=== PATIENT | female | born 1995 | race African-American/Black ===

== ENCOUNTER 2017-04-10 12:05 | Emergency (ER) | payer SELFPAY ==
[~2017-04-10 12:05] MED LIST: IBUP400 PO; MOTI25CH PO
[2017-04-10 12:15] VITALS: BP 113/59; PULSE 118; RESP 20; TEMP 97.5; O2SAT 98
[2017-04-10] MEDS ORDERED: SODIUM CHLOR 0.9% 1000 ML INJ 1,000 ML IV SCH (12:34)
--- NOTE | 2017-04-10 12:37 | PD ---
HPI Chief Complaint: Abdominal Pain Time Seen by Provider: 12:34 Travel History International Travel<30 days: No Contact w/Intl Traveler<30days: No Traveled to known affect area: No History of Present Illness HPI patient 21-year-old female presents emergency department for evaluation of nausea vomiting suprapubic cramps. Patient states that she is on her period and thinks that she's having some cramping. Denies any discharge denies any hematemesis denies any diarrhea or constipation. Denies possibility for . Patient does state that she had some alcoholic beverages last night. States symptoms been going on for the past 2 days. PFS Past Medical History Medical History: Denies Significant Hx Developmental Delay: No Diminished Hearing: No Immunizations Current: Yes ?: Not LMP: 04/2017 Past Surgical History Surgical History: No Previous Surgery Social History Alcohol Use: Yes (drank last night) Tobacco Use: No Substance Use: No Allergies-Medications (Allergen,Severity, Reaction): Coded Allergies: No Known Allergies (Unverified , 04/10/17) Reported Meds & Prescriptions Reported Meds & Active Scripts Active Zofran Odt (Ondansetron Odt) 4 Mg Tab 4 Mg SL Q6HR PRN Review of Systems Except as stated in HPI: all other systems reviewed are Neg Physical Exam Narrative GENERAL: Well-developed well-nourished no obvious distress SKIN: Focused skin assessment warm/dry. HEAD: Atraumatic. Normocephalic. EYES: Pupils equal and round. No scleral icterus. No injection or drainage. ENT: No nasal bleeding or discharge. Mucous membranes pink and moist. NECK: Trachea midline. No JVD. CARDIOVASCULAR: Regular rate and rhythm. No murmur appreciated. RESPIRATORY: No accessory muscle use. Clear to auscultation. Breath sounds equal bilaterally. GASTROINTESTINAL: Abdomen soft, non-tender, nondistended. Hepatic and splenic margins not palpable. MUSCULOSKELETAL: No obvious deformities. No clubbing. No cyanosis. No edema. NEUROLOGICAL: Awake and alert. No obvious cranial nerve deficits. Motor grossly within normal limits. Normal speech. PSYCHIATRIC: Appropriate mood and affect; insight and judgment normal. Data Data Last Documented VS Vital Signs Date Time Temp Pulse Resp B/P (MAP) Pulse Ox O2 Delivery O2 Flow Rate FiO2 04/10/17 15:00 64 16 125/69 (87) 98 04/10/17 12:15 97.5 Orders Orders Urinalysis - C+S If Indicated (04/10/17 12:23) Ed Urine Pregnancytest Poc (04/10/17 12:23) Complete Blood Count With Diff (04/10/17 12:34) Comprehensive Metabolic Panel (04/10/17 12:34) Lipase (04/10/17 12:34) Iv Access Insert/Monitor (04/10/17 12:34) Ecg Monitoring (04/10/17 12:34) Oximetry (04/10/17 12:34) Ondansetron Inj (Zofran Inj) (04/10/17 12:45) Sodium Chlor 0.9% 1000 Ml Inj (Ns 1000 M (04/10/17 12:34) Sodium Chloride 0.9% Flush (Ns Flush) (04/10/17 12:45) Ketorolac Inj (Toradol Inj) (04/10/17 14:30) Labs Laboratory Tests Test 04/10/17 12:40 04/10/17 13:35 White Blood Count 7.4 TH/MM3 Red Blood Count 5.12 MIL/MM3 Hemoglobin 11.4 GM/DL Hematocrit 35.5 % Mean Corpuscular Volume 69.4 FL Mean Corpuscular Hemoglobin 22.2 PG Mean Corpuscular Hemoglobin Concent 32.0 % Red Cell Distribution Width 15.1 % Platelet Count 273 TH/MM3 Mean Platelet Volume 8.8 FL Neutrophils (%) (Auto) 82.2 % Lymphocytes (%) (Auto) 14.5 % Monocytes (%) (Auto) 2.0 % Eosinophils (%) (Auto) 0.4 % Basophils (%) (Auto) 0.9 % Neutrophils # (Auto) 6.0 TH/MM3 Lymphocytes # (Auto) 1.1 TH/MM3 Monocytes # (Auto) 0.1 TH/MM3 Eosinophils # (Auto) 0.0 TH/MM3 Basophils # (Auto) 0.1 TH/MM3 CBC Comment AUTO DIFF Differential Comment AUTO DIFF CONFIRMED Ovalocytes 1+ Keratocytes OCC Blood Urea Nitrogen 12 MG/DL Creatinine 0.92 MG/DL Random Glucose 118 MG/DL Total Protein 7.9 GM/DL Albumin 4.0 GM/DL Calcium Level 8.9 MG/DL Alkaline Phosphatase 58 U/L Aspartate Amino Transf (AST/SGOT) 17 U/L Alanine Aminotransferase (ALT/SGPT) 17 U/L Total Bilirubin 0.4 MG/DL Sodium Level 140 MEQ/L Potassium Level 3.6 MEQ/L Chloride Level 107 MEQ/L Carbon Dioxide Level 21.4 MEQ/L Anion Gap 12 MEQ/L Estimat Glomerular Filtration Rate 94 ML/MIN Lipase 87 U/L Urine Collection Type CLEAN CATCH Urine Color YELLOW Urine Turbidity CLEAR Urine pH 8.0 Urine Specific [place] 1.019 Urine Protein NEG mg/dL Urine Glucose (UA) NEG mg/dL Urine Ketones 15 mg/dL Urine Occult Blood LARGE Urine Nitrite NEG Urine Bilirubin NEG Urine Leukocyte Esterase NEG Urine RBC 15-19 /hpf Urine Squamous Epithelial Cells 0-5 /hpf Microscopic Urinalysis Comment CULT NOT INDICATED Urine Collection Time 13:35 MDM Medical Decision Making Medical Screen Exam Complete: Yes Emergency Medical Condition: Yes Differential Diagnosis , dehydration, nausea vomiting, gastritis, gastroenteritis Narrative Course Patient roomed emergency department, given her suprapubic pain she was offered pelvic examination and declined. Her basic labs are reassuring. She was given Zofran she states her stomach was no longer upset that she still having some mild low back pain. She is given Toradol and felt she was comfortable enough to be discharged. She was prescribed Zofran and discussed symptomatic management home bland diet and return to ED criteria. Discussed dangers of drinking. Diagnosis Primary Impression: Nausea & vomiting Qualified Codes: R11.2 - Nausea with vomiting, unspecified Med/Other Pt SpecificInfo: Prescription(s) given Scripts Ondansetron Odt (Zofran Odt) 4 Mg Tab 4 MG SL Q6HR Y for Nausea/Vomiting, #20 TAB 0 Refills Prov: Santana Colindres MD 04/10/17 Disposition: 01 DISCHARGE HOME Condition: Stable Santana Colindres MD Apr 10, 2017 12:37
[2017-04-10 12:45] LABS: BASOPHIL # 0.1 TH/MM3 (0-0.2); BASOPHIL % 0.9 % (0.0-2.0); EOSINOPHIL % 0.4 % (0.0-4.0); HEMATOCRIT 35.5 % (35.0-46.0); LYMPH % 14.5 % (9.0-44.0); LYMPHOCYTE # 1.1 TH/MM3 (1.0-4.8); MEAN CELL VOLUME 69.4 FL (80.0-100.0); MEAN CORPUSCULAR HEMOGLOBIN 22.2 PG (27.0-34.0); NEUT % 82.2 % (16.0-70.0); PLATELET COUNT 273 TH/MM3 (150-450); RED BLOOD COUNT 5.12 MIL/MM3 (4.00-5.30); RED CELL DISTRIBUTION WIDTH 15.1 % (11.6-17.2); WHITE BLOOD COUNT 7.4 TH/MM3 (4.0-11.0)
[2017-04-10] MEDS ORDERED: ONDANSETRON HCL 4 MG/2 ML VIAL IVP ONE (12:45)
[2017-04-10] MEDS ORDERED: SODIUM CHLORIDE 0.9% FLUSH 10 ML FLUSH IV FLUSH PRN (12:45)
[2017-04-10 12:56] LABS: CHLORIDE 107 MEQ/L (98-107); POTASSIUM 3.6 MEQ/L (3.5-5.1); SODIUM (NA) 140 MEQ/L (136-145)
[2017-04-10 12:57] LABS: HEMO FLAGS AUTO DIFF
[2017-04-10 13:00] LABS: ANION GAP 12 MEQ/L (5-15); BICARBONATE 21.4 MEQ/L (21.0-32.0); BLOOD UREA NITROGEN 12 MG/DL (7-18)
[2017-04-10 13:03] LABS: ALT (GPT) 17 U/L (9-42); AST (GOT) 17 U/L (16-38); GLOMERULAR FILTRATION RATE 94 ML/MIN (>89)
[2017-04-10 13:05] LABS: TOTAL BILIRUBIN ADULT 0.4 MG/DL (0.2-1.0)
[2017-04-10 13:06] LABS: ALKALINE PHOSPHATASE 58 U/L (45-117)
[2017-04-10 13:41] LABS: KERATOCYTES OCC (NORMAL); OVALOCYTES 1+ (NORMAL); SCAN/DIFF AUTO DIFF CONFIRMED
[2017-04-10 14:03] LABS: BLOOD, URINE LARGE (NEG); GLUCOSE,URINE NEG (NEG); KETONE, URINE 15 mg/dL (NEG); NITRITE,URINE NEG (NEG)
[2017-04-10 14:15] LABS: METHOD OF COLLECTION CLEAN CATCH; URINE COLOR YELLOW (YELLW/STRAW)
[2017-04-10] MEDS ORDERED: KETOROLAC TROMETHAMINE 30 MG/ML (IVP) VIAL IV PUSH ONE (14:30)
[2017-04-10 14:33] LABS: COMMENT (UR) CULT NOT INDICATED; CULTURE IF INDICATED CULT NOT INDICATED; RBC, URINE 15-19 /hpf (0-3); SQUAMOUS EPITHELIAL CELL URINE 0-5 /hpf (0-5)
[2017-04-10] MEDS ORDERED: ZOFR4TAB3 SL (14:44)
[2017-04-10 15:00] VITALS: BP 125/69
== END 2017-04-10 15:29 | disposition home or self-care (01) ==
LOC: PHED 12:05
DX: R11.2 Nausea with vomiting, unspecified (principal)
CPT/HCPCS: 80053; 81001; 83690; 84703; 85025; 96361; 96374; 96375; 99284; J1885; J2405; J7030

== ENCOUNTER 2017-12-23 18:09 | Emergency (ER) | payer MEDICAID, OTHER ==
[~2017-12-23] VITALS: Ht 165.1 cm; Wt 75.7 kg
[~2017-12-23 18:09] MED LIST changes: -IBUP400 PO; -MOTI25CH PO; +ZOFR4TAB3 SL
[2017-12-23 18:26] VITALS: BP 121/67; PULSE 78; RESP 16; TEMP 98.2; O2SAT 98
[2017-12-23] MEDS ORDERED: SODIUM CHLOR 0.9% 1000 ML INJ 1,000 ML IV ONE (18:32)
--- NOTE | 2017-12-23 18:36 | PD ---
HPI Chief Complaint: Cold / Flu Symptoms Time Seen by Provider: 18:27 Travel History International Travel<30 days: No Contact w/Intl Traveler<30days: No Traveled to known affect area: No History of Present Illness HPI 22-year-old female presents to the emergency department for evaluation of cold symptoms for 1 week reporting runny nose, cough, congestion. She denies any fevers. No chest pain or shortness of breath. Patient does report frontal headache, 7/10, aching and throbbing without radiation. She also reports nausea and vomiting for 1 week. Patient states that she vomited 3 times yesterday and once today. Patient denies any abdominal pain. She denies urinary symptoms. She denies . She has no chronic medical problems and takes no prescribed medications. No exacerbating or alleviating factors. Moderate severity. PFSH Past Medical History Medical History: Denies Significant Hx Developmental Delay: No Diminished Hearing: No Immunizations Current: Yes Tetanus Vaccination: Unknown Influenza Vaccination: No ?: Not LMP: 12/02/17 Past Surgical History Surgical History: No Previous Surgery Social History Alcohol Use: Yes (rarely) Tobacco Use: No Substance Use: No Allergies-Medications (Allergen,Severity, Reaction): Coded Allergies: No Known Allergies (Unverified Adverse Reaction, Unknown, 12/23/17) Reported Meds & Prescriptions Reported Meds & Active Scripts Active No Active Prescriptions or Reported Medications Review of Systems Except as stated in HPI: all other systems reviewed are Neg Physical Exam Narrative GENERAL: Well-nourished, well-developed female patient, Ambulatory. Afebrile. SKIN: Focused skin assessment warm/dry. HEAD: Normocephalic. Atraumatic. ENT: Mucosa pink and moist. No erythema or exudates. No uvular edema. No uvular , palatal, or tonsillar deviation. Airway patent. Nasal turbinates appear normal without nasal blood, purulent drainage or septal hematoma. Bilateral tympanic membranes clear without erythema or perforation. EYES: No scleral icterus. No injection or drainage. NECK: Supple, trachea midline. No JVD or lymphadenopathy. CARDIOVASCULAR: Regular rate and rhythm without murmurs, gallops, or rubs. RESPIRATORY: Breath sounds equal bilaterally. No accessory muscle use. Lung sounds are clear to auscultation. GASTROINTESTINAL: Abdomen soft, non-tender, nondistended. MUSCULOSKELETAL: No cyanosis, or edema. BACK: Nontender without obvious deformity. No CVA tenderness. Data Data Last Documented VS Vital Signs Date Time Temp Pulse Resp B/P (MAP) Pulse Ox O2 Delivery O2 Flow Rate FiO2 12/23/17 18:26 98.2 78 16 121/67 (85) 98 Orders Orders Complete Blood Count With Diff (12/23/17 18:32) Comprehensive Metabolic Panel (12/23/17 18:32) Urinalysis - C+S If Indicated (12/23/17 18:32) Lipase (12/23/17 18:32) Iv Access Insert/Monitor (12/23/17 18:32) Ecg Monitoring (12/23/17 18:32) Oximetry (12/23/17 18:32) Ondansetron Inj (Zofran Inj) (12/23/17 18:45) Sodium Chlor 0.9% 1000 Ml Inj (Ns 1000 M (12/23/17 18:32) Sodium Chloride 0.9% Flush (Ns Flush) (12/23/17 18:45) Chest, Pa & Lat (12/23/17 18:32) Ed Urine Pregnancytest Poc (12/23/17 18:32) Labs Laboratory Tests Test 12/23/17 18:45 12/23/17 18:53 Urine Color YELLOW Urine Turbidity CLEAR Urine pH 6.0 Urine Specific [place] 1.025 Urine Protein 30 mg/dL Urine Glucose (UA) NEG mg/dL Urine Ketones NEG mg/dL Urine Occult Blood NEG Urine Nitrite NEG Urine Bilirubin NEG Urine Urobilinogen 0.2 MG/DL Urine Leukocyte Esterase NEG Urine RBC 0-3 /hpf Urine WBC 3-5 /hpf Urine Squamous Epithelial Cells 6-8 /hpf Urine Bacteria FEW /hpf Urine Mucus FEW /lpf Microscopic Urinalysis Comment CULT NOT INDICATED White Blood Count 6.0 TH/MM3 Red Blood Count 5.39 MIL/MM3 Hemoglobin 12.0 GM/DL Hematocrit 37.3 % Mean Corpuscular Volume 69.4 FL Mean Corpuscular Hemoglobin 22.3 PG Mean Corpuscular Hemoglobin Concent 32.2 % Red Cell Distribution Width 14.5 % Platelet Count 286 TH/MM3 Mean Platelet Volume 8.5 FL Neutrophils (%) (Auto) 46.0 % Lymphocytes (%) (Auto) 42.6 % Monocytes (%) (Auto) 6.1 % Eosinophils (%) (Auto) 4.3 % Basophils (%) (Auto) 1.0 % Neutrophils # (Auto) 2.6 TH/MM3 Lymphocytes # (Auto) 2.6 TH/MM3 Monocytes # (Auto) 0.4 TH/MM3 Eosinophils # (Auto) 0.3 TH/MM3 Basophils # (Auto) 0.1 TH/MM3 CBC Comment DIFF FINAL Differential Comment Ovalocytes 1+ Blood Urea Nitrogen 13 MG/DL Creatinine 0.69 MG/DL Random Glucose 77 MG/DL Total Protein 7.6 GM/DL Albumin 3.6 GM/DL Calcium Level 8.8 MG/DL Alkaline Phosphatase 65 U/L Aspartate Amino Transf (AST/SGOT) 16 U/L Alanine Aminotransferase (ALT/SGPT) 16 U/L Total Bilirubin 0.3 MG/DL Sodium Level 136 MEQ/L Potassium Level 4.2 MEQ/L Chloride Level 106 MEQ/L Carbon Dioxide Level 22.9 MEQ/L Anion Gap 7 MEQ/L Estimat Glomerular Filtration Rate 130 ML/MIN Lipase 111 U/L [facility] Medical Decision Making Medical Screen Exam Complete: Yes Emergency Medical Condition: Yes Medical Record Reviewed: Yes Interpretation(s) Last Impressions Chest X-Ray 12/23/171831 Signed Impressions: CONCLUSION: No acute cardiopulmonary disease. Differential Diagnosis Viral syndrome versus URI versus electrolyte abnormality versus gastroenteritis versus dehydration versus UTI Narrative Course 22-year-old female presents to the emergency department for evaluation of cold symptoms for 2 weeks and nausea and vomiting for 1 week. She does appear well on exam. CBC, CMP, lipase, UA, urine test ordered and pending. Patient is given normal saline 1 L IV bolus, Zofran 4 mg IV. Chest x-ray is ordered and pending. CBC shows no acute abnormality. CMP is unremarkable. Lipase is 111. UA is negative for acute infection. UPT is negative. Chest x-ray shows no acute cardiopulmonary disease. Patient appears well on reassessment. She will be discharged with a prescription for Zofran and benzonatate capsules. She is encouraged to follow with a primary care physician. The patient was discharged in stable condition with instructions, including return instructions and follow up instructions. Diagnosis Primary Impression: Nausea & vomiting Qualified Codes: R11.2 - Nausea with vomiting, unspecified Additional Impression: Upper respiratory infection Qualified Codes: J06.9 - Acute upper respiratory infection, unspecified Referrals: Primary Care Physician call for appointment Patient Instructions: Acute Nausea and Vomiting (ED), General Instructions, Upper Respiratory Infection (ED) Departure Forms: Tests/Procedures, Work Release Enter return to work date: December 26, 2017 Additional Instructions: Take Zofran as directed as needed for nausea/vomiting. Take benzonatate capsules as directed as needed for cough. Follow-up with a primary care physician. Return to the emergency department for any acute worsening of symptoms. Med/Other Pt SpecificInfo: Prescription(s) given Scripts Benzonatate (Benzonatate) 200 Mg Cap 200 MG PO TID Y for COUGH, #21 CAP 0 Refills Prov: Regina Dennis 12/23/17 Ondansetron Odt (Ondansetron Odt) 4 Mg Tab 4 MG SL Q6HR Y for Nausea/Vomiting, #16 TAB 0 Refills Prov: Regina Dennis 12/23/17 Disposition: 01 DISCHARGE HOME Condition: Stable Regina Dennis December 23, 2017 18:36
[2017-12-23] MEDS ORDERED: ONDANSETRON HCL 4 MG/2 ML VIAL IV PUSH ONE (18:45)
[2017-12-23] MEDS ORDERED: SODIUM CHLORIDE 0.9% FLUSH 10 ML FLUSH IVF PRN (18:45)
[2017-12-23 19:03] LABS: AUTOMATED NEUTROPHIL # 2.6 TH/MM3 (1.8-7.7); BASOPHIL # 0.1 TH/MM3 (0-0.2); EOSINOPHIL # 0.3 TH/MM3 (0-0.4); EOSINOPHIL % 4.3 % (0.0-4.0); HEMATOCRIT 37.3 % (35.0-46.0); LYMPH % 42.6 % (9.0-44.0); LYMPHOCYTE # 2.6 TH/MM3 (1.0-4.8); MEAN CELL VOLUME 69.4 FL (80.0-100.0); MEAN CORPUSCULAR HEMOGLOBIN 22.3 PG (27.0-34.0); MEAN CORPUSCULAR HGB CONC 32.2 % (32.0-36.0); MEAN PLATELET VOLUME 8.5 FL (7.0-11.0); MONO % 6.1 % (0.0-8.0); MONOCYTE # 0.4 TH/MM3 (0-0.9); PLATELET COUNT 286 TH/MM3 (150-450); RED BLOOD COUNT 5.39 MIL/MM3 (4.00-5.30); RED CELL DISTRIBUTION WIDTH 14.5 % (11.6-17.2)
[2017-12-23 19:05] LABS: BILIRUBIN, URINE NEG (NEG); BLOOD, URINE NEG (NEG); GLUCOSE,URINE NEG (NEG); KETONE, URINE NEG (NEG); NITRITE,URINE NEG (NEG); URINE COLOR YELLOW (YELLW/STRAW); URINE LEUKOCYTE ESTERASE NEG (NEG)
[2017-12-23 19:09] LABS: CHLORIDE 106 MEQ/L (98-107); SODIUM (NA) 136 MEQ/L (136-145)
[2017-12-23 19:12] LABS: CALCIUM 8.8 MG/DL (8.5-10.1)
--- NOTE | 2017-12-23 19:12 | RADRPT ---
EXAM DATE: 12/23/2017 7:09 PM EDT AGE/SEX: 22 years / Female INDICATIONS: Cough, chest congestion for 2 weeks CLINICAL DATA: This is the patient's initial encounter. Patient reports that signs and symptoms have been present for 2 weeks and indicates a pain score of 0/10. MEDICAL/SURGICAL HISTORY: None. None. COMPARISON: No prior [facility] exams available for comparison. FINDINGS: PA and lateral views of the chest demonstrate the lungs to be symmetrically aerated without evidence of mass, infiltrate or effusion. The cardiomediastinal contours are unremarkable. Osseous structures are intact. CONCLUSION: No acute cardiopulmonary disease. Electronically signed by: Gregorio Greenfield MD 12/23/2017 7:11 PM EDT
[2017-12-23 19:13] LABS: ALBUMIN 3.6 GM/DL (3.4-5.0); BICARBONATE 22.9 MEQ/L (21.0-32.0); BLOOD UREA NITROGEN 13 MG/DL (7-18); GLUCOSE,RANDOM 77 MG/DL (74-106)
[2017-12-23 19:15] LABS: ALT (GPT) 16 U/L (10-53); AST (GOT) 16 U/L (15-37); CREATININE 0.69 MG/DL (0.50-1.00); GLOMERULAR FILTRATION RATE 130 ML/MIN (>89)
[2017-12-23 19:17] LABS: TOTAL BILIRUBIN ADULT 0.3 MG/DL (0.2-1.0); TOTAL PROTEIN 7.6 GM/DL (6.4-8.2)
[2017-12-23 19:18] LABS: ALKALINE PHOSPHATASE 65 U/L (45-117)
[2017-12-23 19:29] LABS: MUCUS URINE FEW /lpf (OCC); RBC, URINE 0-3 /hpf (0-3)
[2017-12-23 19:30] LABS: BACTERIA, URINE FEW /hpf
[2017-12-23 19:34] LABS: OVALOCYTES 1+ (NORMAL)
[2017-12-23] MEDS ORDERED: ONDA4TAB7 SL (19:44)
[2017-12-23] MEDS ORDERED: BENZ1CAP51 PO (19:44)
[2017-12-23 19:58] VITALS: O2SAT 98
== END 2017-12-23 20:05 | disposition home or self-care (01) ==
LOC: PHEFT 18:09
DX: R11.2 Nausea with vomiting, unspecified (principal); J06.9 Acute upper respiratory infection, unspecified
CPT/HCPCS: 71046; 80053; 81001; 83690; 84703; 85025; 96361; 96374; 99284; J2405; J7030